=== PATIENT | male | born 1985 | race Caucasian/White ===

== ENCOUNTER 2020-09-15 12:48 | Emergency (ER) | payer OTHER ==
[2020-09-15] MEDS ORDERED: Ibuprofen 600 MG Tab PO ONE (13:03)
--- NOTE | 2020-09-15 13:43 | CR ---
HISTORY: Left ankle pain. Fall. TECHNIQUE: Three views of the left ankle. COMPARISON: No prior per. FINDINGS: There is an acute obliquely oriented mildly displaced fracture of the distal fibular metaphysis. No acute distal tibial fracture. The width of the ankle mortise overall remains symmetric. There is a spur involving the dorsal aspect of the talar neck. Mild plantar calcaneal spurring. Os peroneum. Soft tissue swelling, greatest laterally. IMPRESSION: Acute, obliquely-oriented mildly displaced fracture of the distal fibular metaphysis with overlying soft tissue swelling. Dictated by Joaquín Chatman MD @ 09/15/2020 1:42:51 PM Dictated by: Joaquín Chatman MD @ 09/15/2020 13:43:20 (Electronically Signed)
--- NOTE | 2020-09-15 14:09 | EDM.PDOC ---
ED HPI GENERAL MEDICAL PROBLEM - General Chief Complaint: Lower Extremity Injury/Pain Stated Complaint: LFT ANKLE Time Seen by Provider: 09/15/20 12:52 - History of Present Illness INITIAL COMMENTS - FREE TEXT/NARRATIVE: CHIEF COMPLAINT(S): Left ankle injury HISTORY OF PRESENT ILLNESS: This is a 35-year-old man without any significant past medical history who comes to the emergency department with a chief complaint of left ankle injury. The patient states that he fell on the ice yesterday and felt a twist and pop in his left ankle. He states that he was able to ambulate on it however he has having 2 out of 10 pain on the left side. There is no radiation of this pain. There is no numbness, tingling, weakness. He states that he did take ibuprofen which did help a little bit and it is exacerbated by moving or touching it. He denies any head injury or loss of consciousness or injury to anywhere else on his body. REVIEW OF SYSTEMS: Cardiovascular: Denies any cyanosis of his distal extremities Skin:Denies a rash MSK: Positive for left ankle pain Neurological: Denies numbness, tingling, weakness PAST MEDICAL HISTORY: As per history of present illness and as reviewed below otherwise noncontributory. SURGICAL HISTORY: As per history of present illness and as reviewed below otherwise noncontributory. SOCIAL HISTORY: As per history of present illness and as reviewed below otherwise noncontributory. FAMILY HISTORY: As per history of present illness and as reviewed below otherwise noncontributory. EXAMINATION OF ORGAN SYSTEMS/BODY AREAS: Constitutional: Blood pressure was 150/96, heart rate 103, respiratory rate 18 with an oxygen saturation 95% on room air. Temperature 36.2 General: Overall well-appearing man who is in no acute distress Psychiatric: Appropriate mood and affect. Eyes: No scleral icterus or conjunctival erythema ENMT: Moist mucous membranes. No pharyngeal erythema Cardiovascular: Regular, rate, and rhythm. No gallops, murmurs, or rubs. Bilateral upper and lower extremity pulses are symmetric and intact. Capillary refill less than 2 seconds in distal extremities Respiratory: Lungs clear to auscultation bilaterally. No wheezes, rales, or rhonchi. Gastrointestinal: Soft, non-tender, non-distended. Normoactive bowel sounds Genitourinary: No suprapubic tenderness Musculoskeletal: Normal range of motion. Pelvis is stable. No cervical, thoracic, or lumbar midline spinal tenderness. There is lateral malleolar tenderness. With mild swelling. Skin: No lesions or abrasions. Neurological: Alert, GCS 15 distal sensation is intact MEDICAL DECISION MAKING AND COURSE IN THE ED WITH INTERPRETATION/REVIEW OF DIAGNOSTIC STUDIES: This is a 35-year-old man and without any significant past medical history who comes to the emergency department with lateral malleolar pain after accidental fall approximately 24 hours ago. We will provide the patient with Motrin for pain relief and obtain a left ankle x-ray. I do not believe any other labs or imaging are indicated. The radiological images were viewed by myself along with reading the report from the radiologist. Left ankle x-ray reveals an acute obliquely oriented mildly displaced fracture of the distal fibular metaphysis with overlying soft tissue swelling After imaging I did discuss the results with the patient. I discussed that we would need to place a splint and that he would need to follow-up with orthopedics. He was amenable to this plan. We placed a posterior mold with stirrup splint and the patient remained neurovascularly intact after placement. At this time we did provide the patient with crutches in order to not put any weight on his left lower extremity. He was instructed to use Tylenol and Motrin for pain relief and ice and elevate the extremity. He is to return for any new or worsening symptoms. DISPOSITION: The patient was discharged home in stable condition. The patient will follow up with orthopedics within 5 to 7 days CONDITION: Fair PROCEDURES: None FINAL IMPRESSION(S)/DIAGNOSES: 1. Acute mildly displaced left distal fibular fracture DME: Crutches Indication: Nonweightbearing of left lower extremity distal fibular fracture Benefit: Nonweightbearing Duration: Until follow-up with orthopedics Chato Jordan M.D. left ankle Pain Score (Numeric/FACES): 2 - Related Data Allergies Allergy/AdvReac Type Severity Reaction Status Date / Time No Known Allergies Allergy Verified 09/15/20 13:43 Home Meds: Home Meds Acetaminophen [Tylenol Extra Strength] 500 mg PO Q6HR #28 tablet 09/15/20 [Rx] Ibuprofen 600 mg PO Q6HR #28 tablet 09/15/20 [Rx] Past Medical History - Infectious Disease History Infectious Disease History: Reports: Chicken Pox Social & Family History - Tobacco Use Tobacco Use Status *Q: Never Tobacco User - Recreational Drug Use Recreational Drug Use: No Review of Systems - Review of Systems Review Of Systems: See Below ED EXAM, GENERAL - Physical Exam Exam: See Below Course - Vital Signs Last Recorded V/S: Last Vital Signs Temp 36.6 C 09/15/20 14:35 Pulse 90 09/15/20 14:35 Resp 18 09/15/20 14:35 BP 140/107 H 09/15/20 14:35 Pulse Ox 99 09/15/20 14:35 - Orders/Labs/Meds Orders: Active Orders 24 hr Category Date Time Status DME for Discharge [COMM] Stat Oth 09/15/20 13:59 Ordered Meds: Medications Discontinued Medications Generic Name Dose Route Start Last Admin Trade Name Freq PRN Reason Stop Dose Admin Ibuprofen 600 mg 09/15/20 13:03 09/15/20 13:57 Motrin PO 09/15/20 13:04 600 mg ONETIME ONE Administration Departure - Departure Time of Disposition: 14:07 Disposition: Home, Self-Care 01 Condition: Fair Clinical Impression: Fracture of distal end of fibula Qualifiers: Encounter type: initial encounter Fracture type: closed Fracture morphology: unspecified fracture morphology Laterality: left Qualified Code(s): S82.832A - Other fracture of upper and lower end of left fibula, initial encounter for closed fracture - Discharge Information *PRESCRIPTION DRUG MONITORING PROGRAM REVIEWED*: No *COPY OF PRESCRIPTION DRUG MONITORING REPORT IN PATIENT MAICOL: No Prescriptions: Ibuprofen 600 mg PO Q6HR #28 tablet Acetaminophen [Tylenol Extra Strength] 500 mg PO Q6HR #28 tablet Instructions: Crutch Use, Adult, [id number], Nondisplaced Fibular Ankle Fracture Treated With Immobilization, Adult Referrals: PCP,None [Primary Care Provider] - Forms: ED Department Discharge Additional Instructions: Your evaluated today on an emergent basis. At this time you do have a fracture of your distal fibula on the left side. At this time we did place a splint in place. I recommend icing it, elevating it and using Tylenol and Motrin for pain relief. Please do not put any pressure on the left lower extremity we will provide you crutches. It is important that you follow-up with orthopedics within 1 week. Please return if you have any new or worsening symptoms such as a cold foot that you think is not getting any blood, numbness, tingling. Please use: Tylenol 500-1000mg every 6 hours (DO NOT TAKE MORE THAN 4000mg in 1 day) Ibuprofen 400mg every 6 hours (Take with food as it can cause ulcers, GI upset) Example schedule: 8:00 AM (Tylenol 500-1000mg) 11:00 AM (Ibuprofen 400mg) 2:00 PM (Tylenol 500-1000mg) 5:00 PM (Ibuprofen 400mg) Ice the area 20 minutes 4 times per day [facility] [address], [address] [place] [address] The patient is informed of any results of their evaluation and diagnostic workup and all questions are answered. They are given discharge instructions and return precautions. The patient is stable for discharge. The patient states they understand and agree with the plan and that they will return if their symptoms get worse or if they have any new concerns. The following information is given to patients seen in the emergency department who are being discharged to home. This information is to outline your options for follow-up care. We provide all patients seen in our emergency department with a follow-up referral. The need for follow-up, as well as the timing and circumstances, are variable depending upon the specifics of your emergency department visit. If you don't have a primary care physician on staff, we will provide you with a referral. We always advise you to contact your personal physician following an emergency department visit to inform them of the circumstance of the visit and for follow-up with them and/or the need for any referrals to a consulting specialist. The emergency department will also refer you to a specialist when appropriate. This referral assures that you have the opportunity for follow-up care with a specialist. All of these measure are taken in an effort to provide you with optimal care, which includes your follow-up. Under all circumstances we always encourage you to contact your private physician who remains a resource for coordinating your care. When calling for follow-up care, please make the office aware that this follow-up is from your recent emergency room visit. If for any reason you are refused follow-up, please contact the [facility] Emergency Department at and asked to speak to the emergency department charge nurse. Sepsis Event Note (ED) - Evaluation Sepsis Screening Result: No Definite Risk - My Orders Last 24 Hours: My Active Orders 09/15/20 13:59 DME for Discharge [COMM] Stat - Assessment/Plan Last 24 Hours: My Active Orders 09/15/20 13:59 DME for Discharge [COMM] Stat
== END 2020-09-15 14:35 | disposition home or self-care (01) ==
LOC: MW.ED 12:48
DX: S82.832A Other fracture of upper and lower end of left fibula, initial encounter for closed fracture (principal); W00.0XXA Fall on same level due to ice and snow, initial encounter
CPT/HCPCS: 29515; 73610; 99283; A9270